=== PATIENT | female | born 1970 | race Caucasian/White ===

== ENCOUNTER 2018-08-20 13:21 | Emergency (ER) | payer OTHER ==
--- NOTE | 2018-08-20 13:33 | EDPHY ---
H & P Stated Complaint: SI Source: Patient, RN/MD Exam Limitations: No limitations - Personal History LMP (Females 10-55): Now Current Tetanus/Diphtheria Vaccine: Yes Current Tetanus Diphtheria and Acellular Pertussis (TDAP): Yes - Medical/Surgical History Hx Asthma: No Hx Chronic Respiratory Disease: No Hx Diabetes: No Hx Cardiac Disease: No Hx Renal Disease: No Hx Cirrhosis: No Hx Alcoholism: No Hx HIV/AIDS: No Hx Splenectomy or Spleen Trauma: No Other PMH: depression - Social History Smoking Status: Never smoked Time Seen by Provider: 08/20/18 13:32 HPI/ROS: HPI: This is a 47-year-old female who presents with Chief Complaint: Suicidal ideation Location: psych Quality: Suicidal ideation Duration: several weeks Signs and Symptoms: no auditory hallucinations, no visual hallucinations, suicidal + ideation with no plan, no homicidal ideation, no paranoia Timing: Acute on chronic Severity: Severe Context: Patient has a history of depression anxiety presents accompanied by her counselor at the urging of her psychiatrist Dr. Jayme Hector at this patient has severe major depression that is not responding to outpatient counseling and medication change approximately 4-6 weeks ago. She was taking Prozac 60 mg daily, Seroquel and Valium. She was tapered and transitioned to Trintellix. Patient reports that she has worsening feelings of hopelessness, non engaged with other people, unwilling to get out of bed, tearful. Patient reports that her mother last December and the holidays have been especially hard for her. In 2016 she had an unsuccessful suicide attempt with inpatient psychiatric admission and ECT therapy. Patient does not feel safe to be at home as she has feelings of self-harm and ending her life. Modifying Factors: Psychiatric medication Comment: ROS: A comprehensive 10 system review of systems is otherwise negative aside from elements mentioned in the history of present illness. MEDICAL/SURGICAL/SOCIAL HISTORY: Medical history: Depression. Currently on menses. Surgical history: Denies Social history: Denies drug, alcohol, tobacco use. Originally from [place]. Unemployed. Family history noncontributory. CONSTITUTIONAL: Overweight, middle-aged white female, tearful, poor eye contact , awake and alert, no obvious distress HEENT: Atraumatic and normocephalic, PERRL, EOMI. Nares patent; no rhinorrhea; no nasal mucosal edema. Tympanic membranes clear. Oropharynx clear, no exudate and moist pink mucosa. Airway patent. No lymphadenopathy. No meningismus. Cardiovascular: Normal S1/S2, regular rate, regular rhythm, without murmur rub or gallop. PULMONARY/CHEST: Symmetrical and nontender. Clear to auscultation bilaterally. Good air movement. No accessory muscle usage. ABDOMEN: Soft, nondistended, nontender, no rebound, no guarding, no peritoneal signs, no masses or organomegaly. No CVAT. EXTREMITIES: 2/2 pulses, strength 5/5, no deformities, no clubbing, no cyanosis or edema. NEUROLOGICAL: no focal neuro deficits. GCS 15. SKIN: Warm and dry, no erythema. no rash. Good capillary refill. PSYCH: Flat affect, no flight of ideas, organized thought process, fair insight and judgment, no auditory hallucinations, no visual hallucinations, suicidal + ideation with no plan, no homicidal ideation, no paranoia (Kira Hopson) Constitutional: Initial Vital Signs Temperature (C) 36.7 C 08/20/18 13:22 Heart Rate 77 08/20/18 13:22 Respiratory Rate 16 08/20/18 13:22 Blood Pressure 150/61 H 08/20/18 13:22 O2 Sat (%) 96 08/20/18 13:22 O2 Delivery Mode Room Air Allergies/Adverse Reactions: Sulfa (Sulfonamide Antibiotics) Allergy (Verified 08/20/18 13:27) Home Medications: Medication Instructions Recorded METHYLIN 08/20/18 Seroquel 08/20/18 Trintellix 08/20/18 Valium 08/20/18 Medical Decision Making ED Course/Re-evaluation: Vital signs reviewed and stable. Placed on M1 hold as patient is gravely disabled and suicidal. Labs and UDS ordered. Given p.o. Ativan 1 mg. 1415: Labs reviewed and grossly unremarkable. Urine drug screen positive for benzodiazepines. Medically clear for mental health evaluation. 1713: End of shift. Pending mental health evaluation and final disposition. Recommend inpatient psychiatric admission for patient. This patient was seen under the supervision of my secondary supervising physician. I evaluated care for this patient with attending. Discussed this patient with Dr. Romero. (Kira Hopson) Patient's care was signed out to me by ALEK Hopson. She has been evaluated by mental health and they are looking for bed in-patient psychiatric for the patient. On re-evaluation the patient is stable. (Yosvany Romero) Differential Diagnosis: Differential diagnosis includes but is not limited to major depression, anxiety disorder, schizophrenia, bipolar disorder, intoxicant use, suicidal ideation, psychosis, evelina. (Kira Hopson) Other Provider: I assumed care of the patient at 0700. Patient received an additional dose of Ativan at 9:45 p.m.. I am informed that the patient has been accepted at [facility] psychiatric facility. [facility] (Elias Foster) Care Turn Over: Dr. Foster at 9:00 p.m. (Yosvany Romero) - Data Points Laboratory Results: Laboratory Results 08/20/18 13:50 08/20/18 13:50 Medications Given: Discontinued Medications Lorazepam (Ativan) 1 mg PO EDNOW ONE Stop: 08/20/18 13:47 Last Admin: 08/20/18 14:10 Dose: 1 mg Lorazepam (Ativan) 1 mg PO EDNOW ONE Stop: 08/20/18 21:40 Last Admin: 08/20/18 21:49 Dose: 1 mg Departure - Departure Disposition: Other Psych, Not [facility] Clinical Impression: Failure of outpatient treatment, Severe major depression without psychotic features, Suicidal thoughts Condition: Fair Referrals: NONE *PRIMARY CARE P,. [Primary Care Provider] - As per Instructions
[2018-08-20] MEDS ORDERED: LORazepam 1 MG TAB PO ONE ×2 (13:46→21:39)
[2018-08-20 13:59] LABS: PLATELET COUNT 311 10^3/uL (150-400)
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
[2018-08-20 22:31] VITALS: BP 118/71
--- NOTE | 2018-08-20 23:43 | ASMTTCLDSP ---
TLC Discharge Disposition Disposition: Answers: Transfer Disposition Notes: Notes: In consultation with ED Physician, Yosvany Romero MD it was concurred pt. appears to meet 27-65 criteria requiring psychiatric hospitalization as pt does appear to be an imminent risk of harm to self due to a mental illness. Discharge Concerns/Recommendations: Notes: Pt was transferred for continued in mental health care. Type of Hold: Answers: M1/72-hour Hold Hold initiated by: Answers: ED Physician For Transfers, Accepting [facility] Facility: For Transfers, Accepting Dr Gadiel Barrett Psychiatrist: Date Signed: 08/20/2018 11:43 PM Electronically Signed By:Madie Abreu
== END 2018-08-20 23:45 ==
DX: F32.9 Major depressive disorder, single episode, unspecified (principal); F41.8 Other specified anxiety disorders; R45.851 Suicidal ideations; Z88.2 Allergy status to sulfonamides
CPT/HCPCS: 80305; G0480